=== PATIENT | female | born 1965 | race Caucasian/White ===

== ENCOUNTER 2016-11-04 01:28 | Inpatient (IN) | payer MEDICARE ==
[~2016-11-04] VITALS: Ht 152.4 cm; Wt 48.7 kg
[~2016-11-04 01:28] MED LIST: ANORO ELLIPTA1 EACH INH; CHOLESTEROL PILL; CLONAZEPAM1 MG PO; ELAVIL 50 MG TA50 MG PO; IBUPROFEN400 MG PO; IBUPROFEN800 MG PO; IPRAT-ALBUT 0.5-3 ML INH; KLONOPIN TAB 00.5 MG PO; LEVAQUIN750 MG PO; LEVOFLOXACIN750 MG PO; LISINOPRIL20 MG PO; NEURONTIN 300300 MG PO; NEURONTIN 400400 MG PO; SIMVASTATIN10 MG PO; SPIRIVA18 MCG INH; STIOLOTO RESPIMAT INH; SUBOXONE 12 MG1 EACH; SUBOXONE 8 MG-1 EACH PO; SUBOXONE 8 MG-1 EACH SL; SYMBICORT 16010.2 GM INH; TESSALON PERLE100 MG PO; VENTOLIN HFA8 GM HHN; VOLTAREN 0.1%2.5 ML TOP; VOLTAREN100 GM TOP
[2016-11-04 03:16] LABS: HEMOGLOBIN 9.4 gm/dl (12.3-15.3); RED BLOOD COUNT 3.2 M/UL (4.00-5.10); WHITE BLOOD COUNT 12.6 K/UL (4.5-11.0)
[2016-11-04 05:33] LABS: BUN/CREATININE RATIO 14 (0-10)
[2016-11-04] MEDS ORDERED: TENORMIN 25 MG25 MG PO (11:41)
[2016-11-04] MEDS ORDERED: FLEXERIL 10 MG10 MG PO (11:41)
[2016-11-04] MEDS ORDERED: LISINOPRIL20 MG PO (11:42)
[2016-11-04] MEDS ORDERED: TORADOL 10 MG T10 MG PO (11:47)
[2016-11-04] MEDS ORDERED: NYSTATIN100000 UNI PO (11:48)
[2016-11-04] MEDS ORDERED: ZUPLENZ4 MG SL (11:51)
[2016-11-04] MEDS ORDERED: VIIBRYD20 MG PO (11:51)
[2016-11-04] MEDS ORDERED: ANORO ELLIPTA1 EACH INH (11:53)
[2016-11-05 05:18] LABS: HEMOGLOBIN 10.9 gm/dl (12.3-15.3)
[2016-11-05 05:19] LABS: RED BLOOD COUNT 3.72 M/UL (4.00-5.10)
--- NOTE | 2016-11-05 11:24 | NUR ---
PT IS CURRENTLY REFUSING IV FLUIDS AND SCDS. SHE IS QUESTIONING NEED FOR HER HOME B/P AND CARDIAC MEDS. EXPLAINED TO HER NEED TO WATCH INTAKE OF ALL MEDS INCLUDING GABEPENTIN AND SUBOXONE. ENCOURAGED HER TO SPEAK TO HER FAMILY DOC ABOUT CHANGING DOSAGE AND FREQUENCY OF MEDS MENTIONED. SIGNIFICANT OTHER AT BEDSIDE AND PARTICIPATED IN CONVERSATION.
[2016-11-06 06:27] LABS: HEMOGLOBIN 9.6 gm/dl (12.3-15.3); WHITE BLOOD COUNT 11.5 K/UL (4.5-11.0)
[2016-11-06 06:28] LABS: RED BLOOD COUNT 3.26 M/UL (4.00-5.10)
[2016-11-06 06:45] LABS: BUN/CREATININE RATIO 21 (0-10)
== END 2016-11-06 13:33 | disposition home or self-care (01) | DRG 917 ==
LOC: ER1 01:28 → ZEROF 06:01 → CCU 10:55 → MED SURG 4 11-05 13:30
PROVIDERS: Family Medicine; Internal Medicine Infectious Disease; ADMIT Internal Medicine
DX: T50.7X1A Poisoning by analeptics and opioid receptor antagonists, accidental (unintentional), initial encounter (principal); G92 Toxic encephalopathy; J96.01 Acute respiratory failure with hypoxia; N17.9 Acute kidney failure, unspecified; E87.2 Acidosis; F11.20 Opioid dependence, uncomplicated; T42.4X1A Poisoning by benzodiazepines, accidental (unintentional), initial encounter; T42.6X1A Poisoning by other antiepileptic and sedative-hypnotic drugs, accidental (unintentional), initial encounter; I95.2 Hypotension due to drugs; D64.9 Anemia, unspecified; E78.5 Hyperlipidemia, unspecified; F15.10 Other stimulant abuse, uncomplicated; D72.829 Elevated white blood cell count, unspecified; J44.9 Chronic obstructive pulmonary disease, unspecified; G89.4 Chronic pain syndrome; F32.9 Major depressive disorder, single episode, unspecified; F41.9 Anxiety disorder, unspecified; Z79.899 Other long term (current) drug therapy; Z98.51 Tubal ligation status; Z80.1 Family history of malignant neoplasm of trachea, bronchus and lung; Z82.3 Family history of stroke
CPT/HCPCS: 36415; 36600; 51702; 70450; 71010; 80053; 80074; 80307; 81001; 82140; 82550; 82553; 82570; 82803; 82962; 83605; 83874; 84300; 84484; 84703; 85025; 85027; 87086; 93005; 94640; 94664; 96374; 99291; G0480; J2310; J7030

== ENCOUNTER 2016-12-08 13:45 | Observation (INO) | payer MEDICARE ==
[~2016-12-08] VITALS: Ht 152.4 cm; Wt 44.0 kg
[~2016-12-08 13:45] MED LIST changes: +FLEXERIL 10 MG10 MG PO; +NYSTATIN100000 UNI PO; +TENORMIN 25 MG25 MG PO; +TORADOL 10 MG T10 MG PO; +VIIBRYD20 MG PO; +ZUPLENZ4 MG SL
[2016-12-08 14:36] LABS: HEMOGLOBIN 10.3 gm/dl (12.3-15.3); RED BLOOD COUNT 3.51 M/UL (4.00-5.10); WHITE BLOOD COUNT 10.3 K/UL (4.5-11.0)
[2016-12-08] MEDS ORDERED: TENORMIN 25 MG25 MG PO (22:08)
[2016-12-08] MEDS ORDERED: BREO ELLIPTA 11 EACH INH (22:08)
[2016-12-08] MEDS ORDERED: FLEXERIL 10 MG10 MG PO (22:09)
[2016-12-08] MEDS ORDERED: LISINOPRIL20 MG PO (22:10)
[2016-12-08] MEDS ORDERED: SIMVASTATIN10 MG PO (22:10)
[2016-12-08] MEDS ORDERED: SUBOXONE 8 MG-1 EACH PO (22:17)
[2016-12-08] MEDS ORDERED: KLONOPIN0.5 MG PO (22:18)
[2016-12-09 05:58] LABS: HEMOGLOBIN 10.1 gm/dl (12.3-15.3); RED BLOOD COUNT 3.38 M/UL (4.00-5.10)
[2016-12-09] MEDS ORDERED: FLEXERIL 10 MG10 MG PO (08:49)
[2016-12-09] MEDS ORDERED: VOLTAREN100 GM TOP (08:50)
[2016-12-09] MEDS ORDERED: ZOFRAN ODT 4 MG4 MG PO (08:51)
[2016-12-09] MEDS ORDERED: VIIBRYD20 MG PO (08:52)
[2016-12-09] MEDS ORDERED: TENORMIN 25 MG25 MG PO (08:52)
[2016-12-09] MEDS ORDERED: LISINOPRIL20 MG PO (08:53)
[2016-12-09] MEDS ORDERED: NEURONTIN 400400 MG PO (08:53)
[2016-12-10 05:29] LABS: BUN/CREATININE RATIO 14 (0-10)
== END 2016-12-10 16:39 | disposition home or self-care (01) ==
LOC: ER1 13:45 → PROG CARE 17:25 → ZEROF 17:25 → PROG CARE 20:10 → M/S 12-09 13:46
PROVIDERS: Physician Assistant; ADMIT Internal Medicine
DX: I95.1 Orthostatic hypotension (principal); E86.0 Dehydration; N17.9 Acute kidney failure, unspecified; E87.2 Acidosis; J44.9 Chronic obstructive pulmonary disease, unspecified; F11.20 Opioid dependence, uncomplicated; E87.1 Hypo-osmolality and hyponatremia; I10 Essential (primary) hypertension; F41.9 Anxiety disorder, unspecified; Z87.891 Personal history of nicotine dependence; Z80.1 Family history of malignant neoplasm of trachea, bronchus and lung; Z82.3 Family history of stroke; Z79.1 Long term (current) use of non-steroidal anti-inflammatories (NSAID); Z79.899 Other long term (current) drug therapy; Z98.51 Tubal ligation status
CPT/HCPCS: 36415; 71010; 80048; 80053; 81001; 82550; 82553; 83605; 83735; 83874; 84484; 85025; 85027; 87040; 93005; 94640; 94664; 94760; 96361; 96374; 99285; G0378; J1720; J7030

== ENCOUNTER 2017-04-22 17:51 | Emergency (ER) | payer MEDICARE ==
[~2017-04-22 17:51] MED LIST changes: +BREO ELLIPTA 11 EACH INH; +KLONOPIN0.5 MG PO; +ZOFRAN ODT 4 MG4 MG PO
== END 2017-04-22 19:40 | disposition home or self-care (01) ==
LOC: ER1 17:51
DX: N39.0 Urinary tract infection, site not specified (principal); R21 Rash and other nonspecific skin eruption; I10 Essential (primary) hypertension; E78.5 Hyperlipidemia, unspecified; J44.9 Chronic obstructive pulmonary disease, unspecified; Z99.81 Dependence on supplemental oxygen
CPT/HCPCS: 81001; 99283

== ENCOUNTER 2021-01-14 08:32 | Emergency (ER) | payer OTHER ==
[~2021-01-14 08:32] MED LIST changes: +OMNICEF 300 MG300 MG PO; +ZOFRAN4 MG PO
== END 2021-01-14 10:30 | disposition home or self-care (01) ==
LOC: ER1 08:32
DX: S23.3XXA Sprain of ligaments of thoracic spine, initial encounter (principal); S46.911A Strain of unspecified muscle, fascia and tendon at shoulder and upper arm level, right arm, initial encounter; F41.9 Anxiety disorder, unspecified; J44.9 Chronic obstructive pulmonary disease, unspecified; Z88.8 Allergy status to other drugs, medicaments and biological substances; W20.8XXA Other cause of strike by thrown, projected or falling object, initial encounter; Y92.009 Unspecified place in unspecified non-institutional (private) residence as the place of occurrence of the external cause
CPT/HCPCS: 72072; 73080; 99283

== ENCOUNTER → 2021-12-31 | Outpatient (CLI) | payer OTHER | LOC: RAD 15:43 | DX: R05.9 Cough, unspecified (principal); M54.6 Pain in thoracic spine; M54.50 Low back pain, unspecified; N20.0 Calculus of kidney; M50.30 Other cervical disc degeneration, unspecified cervical region; M47.814 Spondylosis without myelopathy or radiculopathy, thoracic region | CPT/HCPCS: 71046; 72050; 72070; 72110 ==

== ENCOUNTER → 2022-01-21 | Outpatient (CLI) | payer OTHER | LOC: RAD 13:55 | DX: M25.532 Pain in left wrist (principal); M25.531 Pain in right wrist; M79.642 Pain in left hand; M79.641 Pain in right hand; M19.042 Primary osteoarthritis, left hand; M19.041 Primary osteoarthritis, right hand | CPT/HCPCS: 73100; 73130 ==

== ENCOUNTER → 2022-03-23 | Outpatient (CLI) | payer OTHER | LOC: HEART 5 13:13 | DX: J44.9 Chronic obstructive pulmonary disease, unspecified (principal) | CPT/HCPCS: 94060; 94729 ==